=== PATIENT | female | born 1985 | race Caucasian/White ===

== ENCOUNTER 2017-09-23 13:56 | Emergency (ER) | payer OTHER ==
[~2017-09-23] VITALS: Ht 157.5 cm; Wt 87.5 kg
[~2017-09-23 13:56] MED LIST: COLACE100 MG PO; IBUPROFEN 600600 M1 PO; IRON325 PO
[2017-09-23 14:52] LABS: HEMOGLOBIN 14.4 gm/dL (12.0-15.0); MCH 31.3 pg (26.0-34.0); MCHC 34.2 g/dL (28.0-37.0); MCV 91.3 fL (80.0-100.0); RBC 4.6 mil/uL (4.20-5.00); RDW 13.5 % (10.5-14.5); WBC 8.5 thou/uL (4.0-11.0)
[2017-09-23 14:58] LABS: CALCIUM 9.1 mg/dL (8.5-10.1); CREATININE 1.1 mg/dL (0.6-1.0); POTASSIUM 3.3 mmol/L (3.5-5.1)
[2017-09-23] MEDS ORDERED: HYDROCHLOROTHIA25 M2 PO (15:42)
[2017-09-23] MEDS ORDERED: NORVASC5 MG PO (15:42)
[2017-09-23] MEDS ORDERED: FLONASE 0.05%50 MCG NASAL (15:43)
[2017-09-23] MEDS ORDERED: NIFEDIPINE ER60 M1 PO (15:47)
[2017-09-23] MEDS ORDERED: METOPROLOL SUC100 MG PO (15:48)
[2017-09-23 16:22] VITALS: BP 171/110
== END 2017-09-23 16:24 | disposition home or self-care (01) ==
LOC: ER 13:56
PROVIDERS: Physician Assistant
DX: I10 Essential (primary) hypertension (principal); J32.9 Chronic sinusitis, unspecified; G43.909 Migraine, unspecified, not intractable, without status migrainosus; Z88.0 Allergy status to penicillin; Z88.8 Allergy status to other drugs, medicaments and biological substances

== ENCOUNTER 2017-12-17 19:30 | Inpatient (IN) | payer OTHER ==
[~2017-12-17] VITALS: Ht 157.5 cm; Wt 86.4 kg
--- NOTE | ~2017-12-17 | EKG ---
[place] [address] [facility] [place] [address] ELECTROCARDIOGRAM REPORT Name: CHAS PITTMAN Room #: 206-P ADM IN M.R.#: [id number] Admission: 12/17/17 Attend Phys: Gerson Ferguson MD Discharge: Date of : 85 Report #: [id number] THIS REPORT FOR: //name// [facility] ED Test Date: 2017-12-17 Test Time: 19:42:07 Pat Name: CHAS PITTMAN Department: Room: 206 Gender: F Teacher Aide: JASPREET : 1985 Requested By: Ivelisse Montoya Order Number: [id number] MD: Jose A Goldstein Measurements Intervals [place] Rate: 85 P: 22 GA: 149 QRS: 11 QRSD: 94 T: 159 QT: 375 QTc: 446 Interpretive Statements Sinus rhythm Probable left atrial enlargement RSR' in V1 or V2, right VCD Poor R wave progression Repol abnrm suggests ischemia, lateral leads No previous ECG available for comparison Electronically Signed On 12-18-2017 8:20:00 CDT by Jose A Goldstein [email or web address] <ELECTRONICALLY SIGNED> By: Jose A Goldstein MD, FACC 12/18/17 0820 41 41 Jose A Goldstein MD, FAC /EPI
--- NOTE | ~2017-12-17 | EKG ---
[place] [address] [facility] [place] [address] ELECTROCARDIOGRAM REPORT Name: CHAS PITTMAN Room #: 206-P ADM IN M.R.#: [id number] Admission: 12/17/17 Attend Phys: Gerson Ferguson MD Discharge: Date of : 85 Report #: [id number] THIS REPORT FOR: //name// [facility] ED Test Date: 2017-12-17 Test Time: 23:15:14 Pat Name: CHAS PITTMAN Department: Room: 206 Gender: F Occupational Nurse: jolie : 1985 Requested By: Ivelisse Montoya Order Number: [id number] MD: Jose A Goldstein Measurements Intervals [place] Rate: 73 P: 24 LA: 151 QRS: 9 QRSD: 107 T: 168 QT: 408 QTc: 450 Interpretive Statements Sinus rhythm Probable left atrial enlargement RSR' in V1 or V2, probably normal variant LVH with secondary repolarization abnormality No previous ECG available for comparison Electronically Signed On 12-18-2017 8:31:46 CDT by Jose A Goldstein [email or web address] <ELECTRONICALLY SIGNED> By: Jose A Goldstein MD, [facility] 12/18/17 0831 14 Jose A Goldstein MD, [facility] /EPI
--- NOTE | ~2017-12-17 | 2DMMODE ---
[facility] [address] [facility] [place] [address] 2 D/M-MODE ECHOCARDIOGRAM Name: CHAS PITTMAN Room #: 206-P [facility]#: [id number] Admission: 12/17/17 Attend Phys: Gerson Ferguson MD Discharge: Date of : 85 Date of Service: 12/18/17 0857 Report #: [id number] THIS REPORT FOR: //name// APPROVED REPORT Study performed: 12/18/2017 08:13:27 EXAM: Comprehensive 2D, Doppler, and color-flow Echocardiogram Patient Location: In-Patient Room #: 206 Status: routine BSA: 1.86 HR: 65 bpm BP: 145/92 mmHg Other Information Study Quality: Good Indications Hypertension/HDD 2D Dimensions RVDd: 23.04 mm IVSd: 13.54 (7-11mm) LVOT Diam: 20.06 (18-24mm) LVDd: 43.15 mm PWd: 14.16 (7-11mm) Ascending Ao: 32.27 (22-36mm) LVDs: 25.28 (25-40mm) Aortic Root: 32.65 mm IVC: 17.00 mm Volumes Left Atrial Volume (Systole) Single Plane 4CH: 28.85 mL Single Plane 2CH: 33.84 mL LA ESV Index: 18.00 mL/m2 Aortic Valve AoV Peak Jordan.: 1.57 m/s AO Peak Gr.: 9.88 mmHg LVOT Max P.11 mmHg LVOT Max V: 1.13 m/s MIKALA Vmax: 2.27 cm2 Mitral Valve E/A Ratio: 0.7 MV Decel. Time: 237.18 ms MV E Max Jordan.: 0.59 m/s MV A Jordan.: 0.82 m/s [facility] [place] [address] 2 D/M-MODE ECHOCARDIOGRAM Name: CHAS PITTMAN Room #: [address] [place] [address] IN M.R.#: [id number] Admission: 12/17/17 Attend Phys: Gerson Ferguson MD Discharge: Date of : 85 Date of Service: 12/18/17 0857 Report #: [id number] PHT: 68.78 ms IVRT: 217.99 ms Pulmonary Valve PV Peak Jordan.: 1.09 m/s PV Peak Gr.: 4.73 mmHg Pulmonary Vein P Vein S: 0.57 m/s P Vein A: 0.35 m/s P Vein D: 0.41 m/s P Vein A Dur.: 86.5 msec P Vein S/D Ratio: 1.39 Tricuspid Valve TR Peak Jordan.: 2.22 m/s RAP Estimate: 10.00 mmHg TR Peak Gr.: 19.70 mmHg PA Pressure: 30.00 mmHg Left Ventricle The left ventricle is normal size. There is normal LV segmental wall motion. Mild concentric left ventricular hypertrophy. The left ventricular systolic function is normal. The left ventricular ejection fraction is within the normal range. LVEF is 60-65%. Mild diastolic dysfunction is present (impaired relaxation pattern). Right Ventricle The right ventricle is normal size. The right ventricular systolic function is normal. Atria The left atrium size is normal. The right atrium size is normal. Aortic Valve The aortic valve is normal in structure. Trace aortic regurgitation. There is no aortic valvular stenosis. Mitral Valve The mitral valve is normal in structure. There is no mitral valve regurgitation No evidence of mitral valve stenosis. Tricuspid Valve The tricuspid valve is normal in structure. Mild tricuspid regurgitation. PAP is estimated at 30 mmHg. Pulmonic Valve The pulmonary valve is normal in structure. Trace pulmonic [facility] [address] [place] [address] 2 D/M-MODE ECHOCARDIOGRAM Name: CHAS PITTMAN Room #: 206-P [facility]#: [id number] Admission: 12/17/17 Attend Phys: Gerson Ferguson MD Discharge: Date of : 85 Date of Service: 12/18/17 0857 Report #: [id number] regurgitation. Great Vessels The aortic root is normal in size. IVC is normal in size and collapses <50% with inspiration. Pericardium There is no pericardial effusion. <Conclusion> The left ventricular systolic function is normal. There is normal LV segmental wall motion. LVEF is 60-65%. Mild diastolic dysfunction The aortic valve is normal in structure. Trace aortic regurgitation, no stenosis. The mitral valve is normal in structure. No mitral insufficiency Mild tricuspid regurgitation. PAP is estimated at 30 mmHg. There is no pericardial effusion. <ELECTRONICALLY SIGNED> By: Jose A Goldstein MD, FACC 12/18/17856 6 6 Jose A Goldstein MD, FACC /INF
[~2017-12-17 19:30] MED LIST changes: +FLONASE 0.05%50 MCG NASAL; +HYDROCHLOROTHIA25 M2 PO; +METOPROLOL SUC100 MG PO; +NIFEDIPINE ER60 M1 PO; +NORVASC5 MG PO
[2017-12-17 19:38] VITALS: BP 216/142
[2017-12-17] MEDS ORDERED: CLEOCIN HCL150 MG PO (19:45)
[2017-12-17] MEDS ORDERED: NORCO 5-325 TA1 EACH PO (19:45)
[2017-12-17 21:03] LABS: HEMATOCRIT 41.3 % (37.0-47.0); HEMOGLOBIN 14.5 gm/dL (12.0-15.0); MCH 31.9 pg (26.0-34.0); MCV 91.1 fL (80.0-100.0); RBC 4.54 mil/uL (4.20-5.00); RDW 13.3 % (10.5-14.5); WBC 7.5 thou/uL (4.0-11.0)
[2017-12-17 21:11] LABS: ANION GAP 8 mmol/L (7-16); BUN 12 mg/dL (7-18); CALCIUM 9.3 mg/dL (8.5-10.1); CHLORIDE 99 mmol/L (98-107); CO2 31 mmol/L (21-32); GLUCOSE 101 mg/dL (74-106); SODIUM 138 mmol/L (136-145)
[2017-12-17 21:20] LABS: TROPONIN-I <0.06 ng/mL (<0.06)
[2017-12-17 21:23] LABS: POTASSIUM 2.9 mmol/L (3.5-5.1)
[2017-12-17 23:47] VITALS: BP 201/134
[2017-12-17 23:57] VITALS: BP 177/125
[2017-12-18] VITALS (8 sets, daily range): BP systolic 124–181; BP diastolic 80–113
[2017-12-18 04:58] LABS: ANION GAP 10 mmol/L (7-16); BUN 10 mg/dL (7-18); CALCIUM 8.8 mg/dL (8.5-10.1); CHLORIDE 100 mmol/L (98-107); CO2 28 mmol/L (21-32); GLUCOSE 109 mg/dL (74-106); POTASSIUM 3.3 mmol/L (3.5-5.1); SODIUM 138 mmol/L (136-145); TROPONIN-I <0.06 ng/mL (<0.06)
[2017-12-19 00:28] VITALS: BP 162/112
[2017-12-19 05:09] VITALS: BP 150/98
[2017-12-19 07:43] VITALS: BP 149/105
[2017-12-19 10:50] VITALS: BP 131/87
[2017-12-19] MEDS ORDERED: NORVASC10 MG PO (13:05)
[2017-12-19] MEDS ORDERED: HYDROCHLOROTHIA25 M2 PO (13:06)
[2017-12-19] MEDS ORDERED: LISINOPRIL20 MG PO (13:06)
[2017-12-19 13:31] VITALS: BP 131/87
== END 2017-12-19 13:25 | disposition home or self-care (01) | DRG 305 ==
LOC: ER 19:30 → EROBS 23:21 → 2N 23:21
PROVIDERS: Emergency Medicine; Nurse Practitioner Acute Care
DX: I16.1 Hypertensive emergency (principal); I10 Essential (primary) hypertension; G43.909 Migraine, unspecified, not intractable, without status migrainosus; E87.6 Hypokalemia; K08.409 Partial loss of teeth, unspecified cause, unspecified class; Z82.49 Family history of ischemic heart disease and other diseases of the circulatory system; Z88.0 Allergy status to penicillin; Z88.8 Allergy status to other drugs, medicaments and biological substances; Z90.49 Acquired absence of other specified parts of digestive tract; Z79.899 Other long term (current) drug therapy; Z28.21 Immunization not carried out because of patient refusal
CPT/HCPCS: 10081

== ENCOUNTER 2018-04-09 09:39 | Emergency (ER) | payer OTHER ==
[~2018-04-09] VITALS: Ht 157.5 cm; Wt 81.7 kg
[~2018-04-09 09:39] MED LIST changes: +CLEOCIN HCL150 MG PO; +LISINOPRIL20 MG PO; +NORCO 5-325 TA1 EACH PO; +NORVASC10 MG PO
[2018-04-09 09:50] VITALS: BP 192/122
[2018-04-09] MEDS ORDERED: NORVASC10 MG PO (10:00)
[2018-04-09] MEDS ORDERED: HYDROCHLOROTHIA25 M2 PO (10:00)
[2018-04-09] MEDS ORDERED: LISINOPRIL20 MG PO (10:00)
== END 2018-04-09 10:08 | disposition home or self-care (01) ==
LOC: ER 09:39
DX: J06.9 Acute upper respiratory infection, unspecified (principal); I10 Essential (primary) hypertension; G43.909 Migraine, unspecified, not intractable, without status migrainosus; Z88.0 Allergy status to penicillin; Z88.8 Allergy status to other drugs, medicaments and biological substances; Z90.49 Acquired absence of other specified parts of digestive tract